=== PATIENT | male | born 1955 | race Caucasian/White ===

== ENCOUNTER 2019-07-18 11:25 | Observation (INO) | payer BC ==
[2019-07-18] MEDS ORDERED: HEPARIN SOD,PORK IN 0.45% NACL 25,000 UNIT in 0.45% NACL 1 250ML.BAG IV SCH (16:00)
--- NOTE | 2019-07-18 16:37 | P.HPIM ---
History of Present Illness 63-year-old cousin male with no known history of other medical problems came in with the chest pressure like sensation on and off multiple times last for a few minutes nonexertional doesn't change with deep breathing denied any coughing, mild pressure-like sensation radiating across the chest without any fever chills or cough. Patient's chest pain is nonpleuritic not associated with food denied any associated lightheadedness that may be mild diaphoresis. Patient's elder brother who is 5 years old of that the patient had a recent cardiac catheterization and stenting and father had coronary artery disease and CABG in his 70s. Patient was a [facility] EKG was done which showed sinus rhythm without any acute abnormalities and the first set of troponin is negative the only abnormality is elevated creatinine of 1.4 do not have baseline with the BUN and creatinine ratio it appears like patient has some chronic kidney disease. His d-dimer is negative chest x-ray did not show any pneumonic process Review of Systems REVIEW OF SYSTEMS: CONSTITUTIONAL: No fever, no malaise, no fatigue. HEENT: No recent visual problems or hearing problems. Denied any sore throat. CARDIOVASCULAR: No orthopnea, PND, no palpitations, no syncope. PULMONARY: No shortness of breath, no cough, no hemoptysis. GASTROINTESTINAL: No diarrhea, no nausea, no vomiting, no abdominal pain. NEUROLOGICAL: No headaches, no weakness, no numbness. HEMATOLOGICAL: Denies any bleeding or petechiae. GENITOURINARY: Denies any burning micturition, frequency, or urgency. MUSCULOSKELETAL/RHEUMATOLOGICAL: Denies any joint pain, swelling, or any muscle pain. ENDOCRINE: Denies any polyuria or polydipsia. The rest of the 14-point review of systems is negative. 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 History of Any Multi-Drug Resistant Organisms: None Reported Additional Past Surgical History / Comment(s): Vasectomy and colonoscopy Past Anesthesia/Blood Transfusion Reactions: No Reported Reaction, Motion Sickness Smoking Status: Never smoker - Past Family History Father Family Medical History: Coronary Artery Disease (CAD) Additional Family Medical History / Comment(s): Father had CABG in his later 70s. Mother Family Medical History: Thyroid Disorder Additional Family Medical History / Comment(s): hypothyroid. Medications and Allergies Home Medications Medication Instructions Recorded Confirmed Type No Known Home Medications 07/18/19 07/18/19 History Allergies Allergy/AdvReac Type Severity Reaction Status Date / Time gluten Allergy Nausea & Verified 07/18/19 13:45 Vomiting/ITCH Penicillins Allergy Unknown Verified 07/18/19 13:45 Childhood Physical Exam Vitals: Vital Signs Temp Pulse Resp BP Pulse Ox 07/18/19 16:00 98.2 F 51 L 18 111/59 96 07/18/19 13:57 97.6 F 52 L 18 139/76 97 Intake and Output 07/18/19 07/18/19 07/18/19 06:59 14:59 22:59 Other: # Voids 1 Weight 82.6 kg 82.6 kg PHYSICAL EXAMINATION: GENERAL: The patient is alert and oriented x3, not in any acute distress. Well developed, well nourished. HEENT: Pupils are round and equally reacting to light. EOMI. No scleral icterus. No conjunctival pallor. Normocephalic, atraumatic. No pharyngeal erythema. No thyromegaly. CARDIOVASCULAR: S1 and S2 present. No murmurs, rubs, or gallops. PULMONARY: Chest is clear to auscultation, no wheezing or crackles. ABDOMEN: Soft, nontender, nondistended, normoactive bowel sounds. No palpable organomegaly. MUSCULOSKELETAL: No joint swelling or deformity. EXTREMITIES: No cyanosis, clubbing, or pedal edema. NEUROLOGICAL: Gross neurological examination did not reveal any focal deficits. SKIN: No rashes. Thrombosis Risk Factor Assmnt - Choose All That Apply Any of the Below Risk Factors Present?: Yes Each Factor Represents 1 point: Varicose veins Other Risk Factors: Yes Each Risk Factor Represents 2 Points: Age 61-74 years Other congenital or acquired thrombophilia - If yes, enter type in comment: No Thrombosis Risk Factor Assessment Total Risk Factor Score: 3 Thrombosis Risk Factor Assessment Level: Moderate Risk Assessment and Plan Plan: -Chest pain: We'll rule out acute coronary syndromes, unstable angina patient has atypical chest pain unsure of the etiology. Cardiology was consulted and patient may need a stress test tomorrow. Patient will be started on Lotensin 10 in intensity heparin if the second set of troponin is negative this will be discontinued. Patient is comparing of headache because of which nitro patch will be discontinued and we'll order Tylenol -Renal failure: Continue with IV fluids and repeat basic metabolic profile tomorrow unsure. If patient has acute renal failure on chronic kidney disease as I do not have previous creatinines to compare with. -Asthma without any acute exacerbation
[2019-07-18] MEDS: ACETAMINOPHEN TAB 325 MG TAB PO PRN ×2 (16:56→20:52)
[2019-07-18] MEDS: SODIUM CHLORIDE 0.9% 1,000 ML IV SCH (16:58)
[2019-07-19 04:34] LABS: African American GFR (CKD) >90 (>60 ml/min/1.73 sqM); Anion Gap 4 mmol/L; Blood Urea Nitrogen 17 mg/dL (9-20); Calcium 8.8 mg/dL (8.4-10.2); Carbon Dioxide 27 mmol/L (22-30); Chloride 108 mmol/L (98-107); Cholesterol 169 mg/dL (<200); Glucose 106 mg/dL (74-99); HDL Cholesterol 42 mg/dL (40-60); LDL Cholesterol,Calculated 106 mg/dL (0-99); Non-African American GFR(CKD) 81 (>60 ml/min/1.73 sqM); Potassium 4.2 mmol/L (3.5-5.1); Sodium 139 mmol/L (137-145); Triglycerides 104 mg/dL (<150)
[2019-07-19] MEDS: SODIUM CHLORIDE 0.9% 1,000 ML IV SCH (06:51)
[2019-07-19 08:43] VITALS: RESP 18
--- NOTE | 2019-07-19 11:45 | P.CRDCN ---
History of Present Illness History of present illness: HISTORY OF PRESENTING ILLNESS This is a pleasant 63-year-old male past medical history significant for asthma. He does not follow in the office with cardiology. We have been ask ed to see in consultation for chest pain. He has been having an achy type pain under his left arm for 3 days. The discomfort has been rather constant with no specific aggravating or alleviating factors. He has an active job loading and unloading trucks so he attributed this to a muscular type pain. However at times he would also have a heavy feeling in the mid-sternal region. Thursday on the way to work he was at the bank and he had another instance of heavy pressure in the chest associated with acute diaphoresis. He initially presented to Dr. richards. Initial EKG and troponin were unremarkable. He was transferred here for further cardiac evaluation. His father and his brother both have had coronary artery disease however his father was in his 70s and his brother was 66. DIAGNOSTICS EKG reveals sinus bradycardia with no acute ST or T wave abnormalities noted. Chest xray negative for an acute cardiopulmonary process. Laboratory reviewed, sodium 139, potassium 4.2, creatinine 1.0, cardiac enzymes negative 3, LDL 106. He takes no daily cardiac medications. REVIEW OF SYSTEMS At the time of my exam: CONSTITUTIONAL: Denies fever or chills. CARDIOVASCULAR: Denies chest pain, shortness of breath, orthopnea, PND or palpitations. RESPIRATORY: Denies cough. GASTROINTESTINAL: Denies abdominal pain, diarrhea, constipation, nausea or vomiting. MUSCULOSKELETAL: Denies myalgias. NEUROLOGIC: Denies numbness, tingling or weakness. ENDOCRINE: Denies fatigue, weight change, polydipsia or polyurina. GENITOURINARY: Denies burning, hematuria or urgency with micturation. HEMATOLOGIC: Denies history of anemia or bleeding. PHYSICAL EXAMINATION Blood pressure 124/70 heart rate 52 afebrile and maintaining oxygen saturation on bear. CONSTITUTIONAL: No apparent distress. HEENT: Head is normocephalic. Pupils are equal, round. Sclerae anicteric. Mucous membranes of the mouth are moist. No JVD. No carotid bruit. CHEST EXAMINATION: Lungs are clear to auscultation. No chest wall tenderness is noted on palpation or with deep breathing. HEART EXAMINATION: Regular rate and rhythm. S1, S2 heard. No murmurs, gallops or rub. ABDOMEN: Soft, nontender. Positive bowel sounds. EXTREMITIES: 2+ peripheral pulses, no lower extremity edema and no calf tenderness. NEUROLOGIC EXAMINATION: Patient is awake, alert and oriented x3. ASSESSMENT Chest pain, an acute coronary event has been ruled out PLAN An acute coronary event has been ruled out. Obtain 2-D echocardiogram and Doppler study to assess cardiac structure and function. Perform stress echocardiogram to assess for stress-induced ischemia. If stress test is normal he is stable for discharge from a cardiac perspective. Lifestyle modifications recommended for lowering of LDL cholesterol. Thank you kindly for this consultation. Nurse Practitioner note has been reviewed, I agree with a documented findings and plan of care. Patient was seen and examined. 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 History of Any Multi-Drug Resistant Organisms: None Reported Additional Past Surgical History / Comment(s): Vasectomy and colonoscopy Past Anesthesia/Blood Transfusion Reactions: No Reported Reaction, Motion Sickness Smoking Status: Never smoker - Past Family History Father Family Medical History: Coronary Artery Disease (CAD) Additional Family Medical History / Comment(s): Father had CABG in his later 70s. Mother Family Medical History: Thyroid Disorder Additional Family Medical History / Comment(s): hypothyroid. Medications and Allergies Home Medications Medication Instructions Recorded Confirmed Type No Known Home Medications 07/18/19 07/18/19 History Allergies Allergy/AdvReac Type Severity Reaction Status Date / Time gluten Allergy Nausea & Verified 07/18/19 13:45 Vomiting/ITCH Penicillins Allergy Unknown Verified 07/18/19 13:45 Childhood Physical Exam Vitals: Vital Signs Temp Pulse Resp BP Pulse Ox 07/19/19 03:38 97.8 F 49 L 16 138/81 98 07/19/19 03:16 18 07/19/19 00:00 97.7 F 46 L 18 112/65 97 07/18/19 20:00 18 07/18/19 19:56 98.1 F 54 L 18 121/62 07/18/19 16:00 98.2 F 51 L 18 111/59 96 07/18/19 13:57 97.6 F 52 L 18 139/76 97 Intake and Output 07/18/19 07/19/19 07/19/19 22:59 06:59 14:59 Other: # Voids 1 1 Weight 82.6 kg Results 07/19/19 04:13 Cardiac Enzymes 07/18/19 07/18/19 07/19/19 Range/Units 16:55 23:13 04:11 Troponin I <0.012 <0.012 <0.012 (0.000-0.034) ng/mL Lipids 07/19/19 Range/Units 04:13 Triglycerides 104 (<150) mg/dL Cholesterol 169 (<200) mg/dL HDL Cholesterol 42 (40-60) mg/dL Comprehensive Metabolic Panel 07/19/19 Range/Units 04:13 Sodium 139 (137-145) mmol/L Potassium 4.2 (3.5-5.1) mmol/L Chloride 108 H (98-107) mmol/L Carbon Dioxide 27 (22-30) mmol/L BUN 17 (9-20) mg/dL Creatinine 1.00 (0.66-1.25) mg/dL Glucose 106 H (74-99) mg/dL Calcium 8.8 (8.4-10.2) mg/dL Current Medications Generic Name Dose Route Start Last Admin Trade Name Yobani PRN Reason Stop Dose Admin Acetaminophen 650 mg 07/18/19 15:53 07/18/19 20:52 Tylenol Tab PO 650 mg Q4HR PRN Administration Fever and/ or Pain Sodium Chloride 1,000 mls @ 75 mls/hr 07/18/19 16:00 07/19/19 06:51 Saline 0.9% IV 75 mls/hr .[id number] ESTELA Administration Intake and Output 07/18/19 07/19/19 07/19/19 22:59 06:59 14:59 Other: # Voids 1 1 Weight 82.6 kg 07/19/19 04:13
[2019-07-19 12:02] VITALS: BP 136/76; PULSE 61; TEMP 97.6
--- NOTE | 2019-07-19 13:01 | ECHOF ---
Referral Reason: MEASUREMENTS -------- HEIGHT: 182.9 cm WEIGHT: 82.6 kg BP: 138/81 RVIDd: 5.0 cm (< 3.3) IVSd: 1.3 cm (0.6 - 1.1) LVIDd: 4.5 cm (3.9 - 5.3) LVPWd: 1.3 cm (0.6 - 1.1) IVSs: 1.7 cm LVIDs: 2.8 cm LVPWs: 1.7 cm LAESV Index (A-L): 21.96 ml/m Ao Diam: 2.6 cm (2.0 - 3.7) AV Cusp: 1.9 cm (1.5 - 2.6) MV EXCURSION: 24.468 mm (> 18.000) MV EF SLOPE: 116 mm/s (70 - 150) EPSS: 0.2 cm MV E Philip: 0.48 m/s MV DecT: 219 ms MV A Philip: 0.46 m/s MV E/A Ratio: 1.05 RAP: 5.00 mmHg RVSP: 28.72 mmHg FINDINGS -------- Sinus rhythm. This was a technically good study. The left ventricular size is normal. There is mild concentric left ventricular hypertrophy. Overa ll left ventricular systolic function is normal with, an EF between 60 - 65 %. The diastolic fillin g pattern is normal for the age of the patient 6.88. The right ventricle is moderately enlarged. Normal LA size by volume 22+/-6 ml/m2. The right atrium is mildly enlarged. Interatrial and interventricular septum intact. The aortic valve is trileaflet and appears structurally normal. There is no evidence of aortic regu rgitation. There is no evidence of aortic stenosis. There is trace mitral regurgitation. Mild tricuspid regurgitation present. There is no evidence of pulmonary hypertension. The right v entricular systolic pressure, as measured by Doppler, is 28.72mmHg. Trace/mild (physiologic) pulmonic regurgitation. The aortic root size is normal. The inferior vena cava is mildly dilated. There is no pericardial effusion. CONCLUSIONS -------- 1. Sinus rhythm. 2. This was a technically good study. 3. The left ventricular size is normal. 4. There is mild concentric left ventricular hypertrophy. 5. Overall left ventricular systolic function is normal with, an EF between 60 - 65 %. 6. The diastolic filling pattern is normal for the age of the patient 6.88 7. The right ventricle is moderately enlarged. 8. Normal LA size by volume 22+/-6 ml/m2. 9. The right atrium is mildly enlarged. 10. Interatrial and interventricular septum intact. 11. The aortic valve is trileaflet and appears structurally normal. 12. There is no evidence of aortic regurgitation. 13. There is no evidence of aortic stenosis. 14. There is trace mitral regurgitation. 15. Mild tricuspid regurgitation present. 16. There is no evidence of pulmonary hypertension. 17. The right ventricular systolic pressure, as measured by Doppler, is 28.72mmHg. 18. Trace/mild (physiologic) pulmonic regurgitation. 19. The aortic root size is normal. 20. The inferior vena cava is mildly dilated. 21. There is no pericardial effusion. INVENTORY CLERK: Beth Gonzalez RDCS
--- NOTE | 2019-07-19 13:28 | P.DS ---
Providers Date of admission: 07/18/19 13:10 Attending physician: Lucila Hilliard Consults: 07/18/19 16:05 Consult Physician Routine Consulting Provider: [facility] Consult Reason/Comments: chest pain Do you want consulting provider notified?: Yes Primary care physician: Stated None Hospital Course: Patient is admitted for chest pain which is atypical patient underwent stress test if that's negative patient will be discharged be ruled out acute coronary syndromes. Patient still has some pain in the left infra-axillary area probably musculoskeletal. PHYSICAL EXAMINATION: GENERAL: The patient is alert and oriented x3, not in any acute distress. Well developed, well nourished. HEENT: Pupils are round and equally reacting to light. EOMI. No scleral icterus. No conjunctival pallor. Normocephalic, atraumatic. No pharyngeal erythema. No thyromegaly. CARDIOVASCULAR: S1 and S2 present. No murmurs, rubs, or gallops. PULMONARY: Chest is clear to auscultation, no wheezing or crackles. ABDOMEN: Soft, nontender, nondistended, normoactive bowel sounds. No palpable organomegaly. MUSCULOSKELETAL: No joint swelling or deformity. EXTREMITIES: No cyanosis, clubbing, or pedal edema. NEUROLOGICAL: Gross neurological examination did not reveal any focal deficits. SKIN: No rashes. The rest of the medical problems hospitalization course please refer to HPI Plan - Discharge Summary Discharge Rx Participant: No New Discharge Prescriptions: No Action No Known Home Medications Discharge Medication List No Known Home Medications 07/18/19 [History] Discharge Disposition: HOME SELF-CARE
--- NOTE | 2019-07-19 14:12 | ECHOS ---
STRESS ECHOCARDIOGRAM INDICATIONS: Chest pain. BASELINE HEART RATE: 59. BASELINE BLOOD PRESSURE: 143/93 MAXIMUM HEART RATE: 142 MAXIMUM BLOOD PRESSURE: 176/82 85% MPHR: 135 100% MPHR: 159 MAXIMUM STAGE REACHED: 4 TOTAL EXERCISE TIME: 12:00 CLINICAL INFORMATION: Patient was exercised for a total period of 12 minutes. The peak heart rate of 142 was achieved. Maximum blood pressure of 176/82 mmHg was noted. Resting EKG shows normal sinus rhythm with normal MN interval and QRS duration and normal ST-T waves. No ST- segment depression suggestive of ischemia is noted. Patient did not complain of any chest pain during the test. Occasional PVCs are noted. The baseline echocardiographic images reveals normal left ventricular chamber size with normal left ventricular systolic function in the immediate postexercise period. Normal increase in the wall thickness and contractility is noted. FINAL IMPRESSION: This stress echocardiographic study is negative for stress-induced ischemia. EKG portion of the stress test is not suggestive of ischemia. Patient's exercise tolerance is normal. MMODL / IJN: [id number] /
== END 2019-07-19 14:26 | disposition home or self-care (01) ==
LOC: 1SOBS 13:10
PROVIDERS: ADMIT Internal Medicine; ATTEND Internal Medicine
DX: R07.89 Other chest pain (principal); J45.909 Unspecified asthma, uncomplicated; Z82.49 Family history of ischemic heart disease and other diseases of the circulatory system; Z87.09 Personal history of other diseases of the respiratory system; Z87.442 Personal history of urinary calculi; G62.9 Polyneuropathy, unspecified; Z88.0 Allergy status to penicillin; Z91.018 Allergy to other foods
CPT/HCPCS: 93005 ×2; 93306; 93351; 80048; 80061; 84484 ×2; G0378 ×2; G0379